=== PATIENT | female | born 1985 | race Caucasian/White ===

== ENCOUNTER 2022-07-30 06:20 | Emergency (ER) | payer BC ==
[~2022-07-30] VITALS: Ht 172.7 cm; Wt 63.5 kg
[2022-07-30 06:20] VITALS: BP 115/79
[~2022-07-30 06:20] MED LIST: NORG1TAB12
--- NOTE | 2022-07-30 06:30 | NUR ---
Dr Aldair MCLAUGHLIN at pt's bedside for eval
[2022-07-30] MEDS ORDERED: AMOX500C2 PO (06:32)
[2022-07-30] MEDS ORDERED: CETI1TAB9 PO (06:32)
== END 2022-07-30 06:52 | disposition home or self-care (01) ==
LOC: ER 06:20
DX: H66.92 Otitis media, unspecified, left ear (principal)